=== PATIENT | female | born 1995 | race Caucasian/White ===

== ENCOUNTER → 2017-02-27 | Outpatient (CLI) | payer BC ==
--- NOTE | 2017-02-27 14:47 | USB ---
Reason for exam: clinical finding. History: Family history of breast cancer in mother at age 42 and breast cancer in maternal grandmother at age 60. Taking hormonal contraceptives beginning at age 13. Physical Findings: Nurse Summary: less thatn 1cm small movable nontender nodule (nurse rm). US Breast RT Right breast ultrasound includes all four quadrants, the retroareolar region and axilla. Finding demonstrates a 8 x 4 x 8mm oval, solid, hypoechoic, circumscribed, vascular lesion at 10 o'clock. These results were verbally communicated with the patient and result sheet given to the patient on 02/27/17. ASSESSMENT: Suspicious, BI-RAD 4 RECOMMENDATION: Ultrasound core biopsy of the right breast. Called Dr. Cesar with mammographic findings and patient requests to call Dr. Ulloa for an appointment. Biopsy scheduled for 03/15/17 at 1 o'clock. PRELIMINARY REPORT CALLED AND FAXED TO DR. ULLOA ON 02/27/17.
== END | disposition home or self-care (01) ==
LOC: RADUSWWP 12:24
PROVIDERS: ATTEND Family Medicine
DX: N63.10 Unspecified lump in the right breast, unspecified quadrant (principal)

== ENCOUNTER → 2017-03-15 | Day surgery (SDC) | payer BC ==
--- NOTE | 2017-03-15 15:31 | USB ---
EXAMINATION TYPE: US biopsy breast VAD RT DATE OF EXAM: 03/15/2017 CLINICAL HISTORY: N63 Breast Lump. TECHNIQUE: Ultrasound guided core biopsy of right breast. COMPARISON: 02/27/2017 FINDINGS: The procedure of ultrasound guided core biopsy was explained to the patient. Benefits, alternatives, and risks were discussed. An informed consent was then obtained. A timeout was performed. The patient was placed in supine positioning for imaging and for the procedure. The overlying skin was prepped and draped in usual sterile fashion. Lidocaine buffered with bicarbonate was used as anesthetic into the skin and subcutaneous tissue up to area of concern in the right breast. A serg was made with surgical scalpel. Under ultrasound guidance, a 12-gauge vacuum assisted biopsy gun device was used to obtain 6 core samples. Following this, a biopsy clip was left in lesion. The patient tolerated the procedure well without any immediate complication. The patient was kept in the radiology department for short stay after the procedure and then discharged home in stable condition. Discharge instructions were discussed with the patient. Patient will follow-up with her surgeon. A post procedure mammogram was not obtained due to the patient age. IMPRESSION: 1. Successful ultrasound-guided core biopsy right breast. Pathology Results: Benign BREAST, RIGHT, CORE BIOPSY: FIBROADENOMA. BACKGROUND FIBROCYSTIC CHANGES INCLUDING FIBROSIS AND SMALL CYSTS. Recommendation Follow up ultrasound of the right breast in 6 months. YADI
[2017-03-15 16:38] VITALS: BP 101/61; PULSE 58; RESP 16; TEMP 98.4; BMI 20.5
== END | disposition home or self-care (01) ==
LOC: RADUSWWP 12:00
PROVIDERS: ATTEND Surgery
DX: D24.1 Benign neoplasm of right breast (principal); N60.31 Fibrosclerosis of right breast
CPT/HCPCS: 88305; 19083; A4648

== ENCOUNTER → 2018-04-30 | Outpatient (CLI) | payer BC ==
--- NOTE | 2018-05-01 07:49 | USB ---
Reason for exam: clinical finding. History: Family history of breast cancer in mother at age 42, breast cancer in maternal grandmother at age 60, and breast cancer in aunt at age 50. Benign US biopsy breast VAD RT of the right breast, March 15, 2017. Taking hormonal contraceptives beginning at age 13. Indicated problem(s): palpable abnormality in the right breast. Physical Findings: Nurse Summary: palpable lump, firm, moves (nurse dw). US Breast RT Right complete breast ultrasound includes all four quadrants, the retroareolar region and axilla. Finding demonstrates a 7 x 4 x 7mm oval, solid lesion at 10 o'clock, seen on previous and biopsied. Benign. Given family history of breast cancer in mother at 42, patient can have first screening at 31. Clinical breast exam should also begin at that time and occur every 6 months. These results were verbally communicated with the patient and result sheet given to the patient on 04/30/18. ASSESSMENT: Benign, BI-RAD 2 RECOMMENDATION: Routine screening mammogram of both breasts at age 31.
== END ==
LOC: RADUSWWP 15:36
PROVIDERS: ATTEND Family Medicine
DX: R92.2 Inconclusive mammogram (principal); R92.8 Other abnormal and inconclusive findings on diagnostic imaging of breast

== ENCOUNTER 2019-03-17 11:12 | Emergency (ER) | payer BC, OTHER ==
[2019-03-17 11:22] VITALS: TEMP 98.7
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
[2019-03-17] MEDS ORDERED: DIPH,PERTUS(ACELL)TETVAC-LF 0.5 ML VIAL IM ONE (11:53)
[2019-03-17 12:37] VITALS: BP 122/75; PULSE 68; RESP 20
== END 2019-03-17 12:45 | disposition home or self-care (01) ==
LOC: EC 11:12
DX: S61.452A Open bite of left hand, initial encounter (principal); Z23 Encounter for immunization; Y04.1XXA Assault by human bite, initial encounter
CPT/HCPCS: 90471; 90715; 99283